=== PATIENT | female | born 1965 | race Caucasian/White ===

== ENCOUNTER 2021-12-11 21:01 | Emergency (ER) | payer BC ==
[2021-12-11] MEDS ORDERED: HYDROmorphone 1 MG/ML Syringe IM ONE (21:57)
[2021-12-11] MEDS ORDERED: Promethazine 25 MG/ML SDV IM ONE (21:57)
[2021-12-11] MEDS ORDERED: Acetaminophen/oxyCODONE 325-5 MG Tab PO ONE (23:01)
== END 2021-12-11 23:16 | disposition home or self-care (01) ==
LOC: JD.ED 21:01
DX: N20.0 Calculus of kidney (principal); E78.00 Pure hypercholesterolemia, unspecified; E03.9 Hypothyroidism, unspecified
CPT/HCPCS: 81001; 96372; 99284; A9270; J1170; J2550; 99283

== ENCOUNTER 2021-12-30 08:58 | Emergency (ER) | payer BC ==
[2021-12-30] MEDS ORDERED: Sodium Chloride 0.9% 1,000 ML IV STA (09:46)
[2021-12-30] MEDS ORDERED: Ondansetron 4 MG/2 ML SDV IVPUSH ONE (09:46)
[2021-12-30] MEDS ORDERED: Sodium Chloride 0.9% 10 ML Syringe FLUSH PRN (09:46)
[2021-12-30] MEDS ORDERED: Sodium Chloride 0.9% 1,000 ML IV ONE (11:03)
== END 2021-12-30 12:39 | disposition home or self-care (01) ==
LOC: JD.ED 08:58
DX: U07.1 COVID-19 (principal); E78.00 Pure hypercholesterolemia, unspecified; E03.9 Hypothyroidism, unspecified; Z79.84 Long term (current) use of oral hypoglycemic drugs; Z79.899 Other long term (current) drug therapy
CPT/HCPCS: 36415; 80053; 85025; 85379; 96374; 99284; J2405; J7030